=== PATIENT | female | born 1990 | race American Indian/Alaskan Native ===

== ENCOUNTER 2020-05-17 23:27 | Emergency (ER) | payer MEDICAID, OTHER ==
[2020-05-17] MEDS ORDERED: Ketorolac 30 MG/ML SDV IM ONE (23:51)
--- NOTE | 2020-05-17 23:57 | EDM.PDOC ---
ED HPI GENERAL MEDICAL PROBLEM - General Chief Complaint: General Stated Complaint: BACK PAIN,HEADACHE Time Seen by Provider: 05/17/20 23:45 Source of Information: Reports: Patient, Old Records, RN History Limitations: Reports: No Limitations - History of Present Illness INITIAL COMMENTS - FREE TEXT/NARRATIVE: 29 yo NA female presents with fever, PIERCE, flank pain and some mild epigastric pain for the past few days. Has not been to the clinic. Is taking acetaminophen 1000 mg every 2-3 hrs lately with minimal relief. Has an occasional dry cough. No dysuria. Nausea only with eating. Her neck is a little sore posteriorly. No rash. Mild photophobia. Says diet consists of MT[employer] Dew, Coffee, and junk food primarily. Does not eat any fruit. Onset: Gradual Onset Date: 05/14/20 Duration: Day(s):, Getting Worse Location: Reports: Head, Neck, Abdomen (epigastrium), Back (flanks) Quality: Reports: Ache Severity: Moderate Improves with: Reports: Medication (partial) Worsens with: Reports: Other (time) Context: Reports: Other (See HPI) Associated Symptoms: Reports: Cough (occasional, dry), Fever/Chills, Headaches. 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 Denies: Diaphoresis HEENT: Reports: No Symptoms Respiratory: Reports: Shortness of Breath (mild, occasional, not now), Cough. Denies: Wheezing, Pleuritic Chest Pain, Sputum, Hemoptysis Cardiovascular: Reports: No Symptoms Endocrine: Reports: No Symptoms GI/Abdominal: Reports: Abdominal Pain (minimal epigastric). Denies: Black S tool, Bloody Stool, Constipation, Diarrhea, Distension, Hematemesis, Hematochezia, Melena, Nausea, Vomiting : Reports: Flank Pain. Denies: Dysuria, Frequency Musculoskeletal: Reports: Neck Pain (mild posterior stiffness) Skin: Reports: No Symptoms Neurological: Reports: Headache Psychiatric: Reports: No Symptoms ED EXAM, GENERAL - Physical Exam Exam: See Below Exam Limited By: No Limitations General Appearance: Alert, WD/WN, No Apparent Distress Eye Exam: Bilateral Eye: Conjunctival Injection, Normal Inspection, PERRL Ears: Normal External Exam, Normal Canal, Hearing Grossly Normal, Normal TMs Ear Exam: Bilateral Ear: Auricle Normal, Canal Normal, TM normal Nose: Normal Inspection, No Blood Throat/Mouth: Normal Inspection, Normal Lips, Normal Oropharynx, Normal Voice, No Airway Compromise Head: Atraumatic, Normocephalic Neck: Normal Inspection Respiratory/Chest: No Respiratory Distress, Lungs Clear, Normal Breath Sounds, No Accessory Muscle Use Cardiovascular: Regular Rate, Rhythm, No Edema GI/Abdominal: Normal Bowel Sounds, Soft, Non-Tender, No Distention Back Exam: Normal Inspection, CVA Tenderness (R), CVA Tenderness (L). No: Vertebral Tenderness Extremities: Normal Inspection, Normal Range of Motion, Non-Tender, No Pedal Edema Neurological: Alert, Oriented, CN II-XII Intact, Normal Cognition, No Motor/Sensory Deficits Psychiatric: Normal Affect, Normal Mood Skin Exam: Warm, Dry, Intact, Normal Color, No Rash Course - Vital Signs Last Recorded V/S: Last Vital Signs Temp 36.7 C 05/17/20 23:36 Pulse 95 05/17/20 23:36 Resp 16 05/17/20 23:36 BP 113/76 05/17/20 23:36 Pulse Ox 96 05/17/20 23:36 - Orders/Labs/Meds Orders: Active Orders 24 hr Category Date Time Status ASPARTATE AMNIOTRANSFERASE,AST [CHEM] Stat Lab 05/18/20 01:55 Ordered NS + KCl 20mEq/L [Normal Saline with 20 mEq KCl] 1,000 Med 05/18/20 00:30 Active ml IV ASDIRECTED Medication Orders Potassium Chloride/Sodium Chloride (Normal Saline With 20 Meq Kcl) 1,000 mls @ 1,000 mls/hr IV ASDIRECTED NATACHA Last Admin: 05/18/20 00:41 Dose: 1,000 mls/hr Documented by: MAYRA Labs: Laboratory Tests 05/18/20 05/18/20 05/18/20 Range/Units 00:05 00:05 00:20 WBC 4.4 L (4.5-11.0) K/uL RBC 5.29 (3.30-5.50) M/uL Hgb 13.3 D (12.0-15.0) g/dL Hct 42.0 (36.0-48.0) % MCV 79 L (80-98) fL MCH 25 L (27-31) pg MCHC 32 (32-36) % Plt Count 192 (150-400) K/uL Sodium 139 L (140-148) mmol/L Potassium 2.8 L* (3.6-5.2) mmol/L Chloride 102 (100-108) mmol/L Carbon Dioxide 26 (21-32) mmol/L Anion Gap 13.8 (5.0-14.0) mmol/L BUN 11 (7-18) mg/dL Creatinine 0.7 (0.6-1.0) mg/dL Est Cr Clr Drug Dosing 101.48 mL/min Estimated GFR (MDRD) > 60 (>60) Glucose 128 H (74-106) mg/dL Calcium 8.6 (8.5-10.1) mg/dL Magnesium (1.8-2.4) mg/dL Urine Color Brown A (YELLOW) Urine Appearance Slightly cloudy A (CLEAR) Urine pH 5.5 (5.0-8.0) Ur Specific Ione >= 1.030 (1.008-1.030) Urine Protein 100 H (NEGATIVE) mg/dL Urine Glucose (UA) 100 H (NEGATIVE) mg/dL Urine Ketones Trace H (NEGATIVE) mg/dL Urine Occult Blood Negative (NEGATIVE) Urine Nitrite Negative (NEGATIVE) Urine Bilirubin Large H (NEGATIVE) Urine Urobilinogen >=8.0 H (0.2-1.0) EU/dL Ur Leukocyte Esterase Negative (NEGATIVE) Urine RBC 0-5 (0-5) Urine WBC 0-5 (0-5) Ur Epithelial Cells Many Amorphous Sediment Few Urine Bacteria Few Urine Mucus Many 05/18/20 Range/Units 00:25 WBC (4.5-11.0) K/uL RBC (3.30-5.50) M/uL Hgb (12.0-15.0) g/dL Hct (36.0-48.0) % MCV (80-98) fL MCH (27-31) pg MCHC (32-36) % Plt Count (150-400) K/uL Sodium (140-148) mmol/L Potassium (3.6-5.2) mmol/L Chloride (100-108) mmol/L Carbon Dioxide (21-32) mmol/L Anion Gap (5.0-14.0) mmol/L BUN (7-18) mg/dL Creatinine (0.6-1.0) mg/dL Est Cr Clr Drug Dosing mL/min Estimated GFR (MDRD) (>60) Glucose (74-106) mg/dL Calcium (8.5-10.1) mg/dL Magnesium 2.1 (1.8-2.4) mg/dL Urine Color (YELLOW) Urine Appearance (CLEAR) Urine pH (5.0-8.0) Ur Specific Ione (1.008-1.030) Urine Protein (NEGATIVE) mg/dL Urine Glucose (UA) (NEGATIVE) mg/dL Urine Ketones (NEGATIVE) mg/dL Urine Occult Blood (NEGATIVE) Urine Nitrite (NEGATIVE) Urine Bilirubin (NEGATIVE) Urine Urobilinogen (0.2-1.0) EU/dL Ur Leukocyte Esterase (NEGATIVE) Urine RBC (0-5) Urine WBC (0-5) Ur Epithelial Cells Amorphous Sediment Urine Bacteria Urine Mucus Meds: Medications Generic Name Dose Route Start Last Admin Trade Name Freq PRN Reason Stop Dose Admin Potassium Chloride/Sodium Chloride 1,000 mls @ 1,000 mls/hr 05/18/20 00:30 05/18/20 00:41 Normal Saline With 20 Meq Kcl IV 1,000 mls/hr ASDIRECTED NATACHA Administration Discontinued Medications Generic Name Dose Route Start Last Admin Trade Name Freq PRN Reason Stop Dose Admin Ketorolac Tromethamine 30 mg 05/17/20 23:51 05/17/20 23:57 Toradol IM 05/17/20 23:52 30 mg ONETIME ONE Administration Potassium Chloride 40 meq 05/18/20 00:23 05/18/20 00:38 Potassium Chloride PO 05/18/20 00:24 40 meq ONETIME ONE Administration Tramadol HCl 50 mg 05/18/20 02:02 Ultram PO 05/18/20 02:03 ONETIME ONE Departure - Departure Time of Disposition: 02:15 Disposition: Home, Self-Care 01 Condition: Fair Clinical Impression: Hypokalemia, Mild dehydration, Poor diet Headache Qualifiers: Headache type: other headache syndrome Qualified Code(s): G44.89 - Other headac he syndrome Back pain Qualifiers: Back pain location: back pain in unspecified location Chronicity: unspecified Back pain laterality: bilateral Qualified Code(s): M54.9 - Dorsalgia, unspecified - Discharge Information *PRESCRIPTION DRUG MONITORING PROGRAM REVIEWED*: Not Applicable *COPY OF PRESCRIPTION DRUG MONITORING REPORT IN PATIENT HAILE: Not Applicable Prescriptions: Potassium Chloride 10 meq PO TID #15 cap.er Instructions: Hypokalemia, Dehydration, Adult, [id number] Referrals: PCP,None [Primary Care Provider] - Forms: ED Department Discharge Additional Instructions: Drink more fluids so that your urine is light yellow in color. Take the potassium supplement as directed until gone. See your doctor for recheck justen. Reduce your caffeine intake. Eat more fruit to replace your potassium. Discuss referral to a accounting manager with your doctor. No acetaminophen tonight, and never take more than is recommended on the bottle. Sepsis Event Note (ED) - Evaluation Sepsis Screening Result: No Definite Risk - Focused Exam Vital Signs: Vital Signs Temp Pulse Resp BP Pulse Ox 05/17/20 23:36 36.7 C 95 16 113/76 96 - My Orders Last 24 Hours: My Active Orders 05/18/20 00:30 NS + KCl 20mEq/L [Normal Saline with 20 mEq KCl] 1,000 ml IV ASDIRECTED 05/18/20 01:55 ASPARTATE AMNIOTRANSFERASE,AST [CHEM] Stat - Assessment/Plan Last 24 Hours: My Active Orders 05/18/20 00:30 NS + KCl 20mEq/L [Normal Saline with 20 mEq KCl] 1,000 ml IV ASDIRECTED 05/18/20 01:55 ASPARTATE AMNIOTRANSFERASE,AST [CHEM] Stat
[2020-05-18] MEDS ORDERED: Potassium Chloride 10 MEQ Cap.ER PO ONE (00:23)
[2020-05-18] MEDS ORDERED: NS + KCl 20mEq/L 1,000 ML IV SCH (00:30)
[2020-05-18] MEDS ORDERED: traMADol 50 MG Tab PO ONE (02:02)
== END 2020-05-18 02:27 | disposition home or self-care (01) ==
LOC: JP.ED 23:27
DX: E87.6 Hypokalemia (principal); E86.0 Dehydration; F17.210 Nicotine dependence, cigarettes, uncomplicated; G44.89 Other headache syndrome; Z72.4 Inappropriate diet and eating habits
CPT/HCPCS: 36415; 80048; 81001; 83735; 84450; 85027; 96365; 96372; 99284; A9270; J1885; J3480; 99283

== ENCOUNTER 2022-06-04 01:03 | Emergency (ER) | payer MEDICAID ==
[2022-06-04] MEDS: Buprenorphine/Naloxone 2-0.5 MG Tab.SL SL ONE (02:22)
[2022-06-04] MEDS: LORazepam 1 MG Tab PO ONE (02:37)
== END 2022-06-04 02:56 | disposition left against medical advice (07) ==
LOC: JP.ED 01:03
DX: K75.9 Inflammatory liver disease, unspecified (principal); F11.23 Opioid dependence with withdrawal; F19.10 Other psychoactive substance abuse, uncomplicated; F17.210 Nicotine dependence, cigarettes, uncomplicated; Z86.16 Personal history of COVID-19
CPT/HCPCS: 36415; 80076; 80305; 80307; 85025; 99284; A9270

== ENCOUNTER 2023-09-20 06:54 | Emergency (ER) | payer SELFPAY | END 2023-09-20 07:58 | disposition home or self-care (01) | LOC: JP.ED 06:54 | DX: L03.115 Cellulitis of right lower limb (principal); F17.210 Nicotine dependence, cigarettes, uncomplicated; Z86.16 Personal history of COVID-19 | CPT/HCPCS: 73630-26-RT; 73630-RT; 99283 ==